=== PATIENT | female | born 1960 | race Caucasian/White ===

== ENCOUNTER 2016-06-26 09:53 | Outpatient (CLI) | payer OTHER ==
[2015-04-01 11:35] VITALS: BP 130/78
[2016-06-26 10:53] LABS: eGFR (African) > 60; eGFR (Non-African) > 60
== END 2016-06-26 09:54 ==
LOC: LAB 09:53
PROVIDERS: ATTEND Family Medicine
DX: E78.2 Mixed hyperlipidemia (principal); E03.9 Hypothyroidism, unspecified; R20.2 Paresthesia of skin
CPT/HCPCS: 36415; 80053; 80061; 82607; 82746; 84443

== ENCOUNTER 2017-07-03 18:36 | Emergency (ER) | payer OTHER ==
--- NOTE | 2017-07-03 19:29 | ED Physician Documentation ---
General Adult - HISTORIAN Historian: patient - HPI Stated Complaint: Problem with trach Chief Complaint: General Adult Timing: better Severity: mild Further Comments: yes (Pt is 56 yo female with a tracheostomy tube. Tube came out at home and was put back in. Pt is doing well and able to breath, but says she needs to be suctioned and to have the inner canula of the tracheostomy tube replaced. Pt uses oxygen 2L at home.) - ROS CONST: no problems EYES/ENT: none CVS/RESP: other (problem with tracheostomy tube) GI/: none MS/SKIN/LYMPH: none - PAST HX Past History: other (anxiety/depression; COPD; tracheostomy; GERD; HLD; HTN; Thyroid d/o.) Surgeries/Procedures: , other (ortho surgery) Allergies/Adverse Reactions: Allergies Allergy/AdvReac Type Severity Reaction Status Date / Time No Known Allergies Allergy Verified 07/03/17 19:30 Home Medications: Ambulatory Orders Medication Instructions Recorded Cyclobenzaprine HCl [Flexeril] 10 mg PO TID PRN 07/03/17 Pregabalin [Lyrica] 75 mg PO DAILY 07/03/17 oxyCODONE HCL [Oxycontin] 10 mg PO Q4 PRN 07/03/17 - SOCIAL HX Smoking History: quit greater than 1 year Drug Use: marijuana - FAMILY HX Family History: No - VITAL SIGNS Vital Signs: Vital Signs Temp Pulse Resp BP Pulse Ox 130/78 04/01/15 11:40 - REVIEWED ASSESSMENTS Nursing Assessment Reviewed: Yes Vitals Reviewed: Yes Progress - Progress Progress: Pt suctioned and inner cannula of tracheostomy replaced. Pt doing well. General Adult Physical Exam - PHYSICAL EXAM GENERAL APPEARANCE: mild distress NECK: normal inspection, supple, other (tracheostomy in place) RESPIRATORY: no resp distress, chest non-tender, breath sounds normal CVS: reg rate & rhythm, heart sounds normal BACK: normal inspection SKIN: warm/dry, normal color EXTREMITIES: non-tender NEURO: oriented X3, motor nml, sensation nml Discharge Clincal Impression: Tracheostomy complication, unspecified Qualifiers: Tracheostomy complication: unspecified Qualified Code(s): J95.00 - Unspecified tracheostomy complication Referrals: Carolina Magallanes MD [Primary Care Provider] - Condition: Good Disposition: 01 HOME, SELF-CARE Decision to Admit: NO Decision Time: 21:43
[2017-07-03 19:48] VITALS: BP 121/47
== END 2017-07-03 19:40 | disposition home or self-care (01) ==
LOC: ED 18:36
DX: J95.00 Unspecified tracheostomy complication (principal)
CPT/HCPCS: 99284

== ENCOUNTER 2017-07-29 10:40 | Emergency (ER) | payer OTHER ==
[2017-07-29] MEDS: IPRATROPIUM/ALBUTEROL SULFATE 3 ML AMPUL.NEB NEB ONE ×2 (10:44→10:59)
--- NOTE | 2017-07-29 10:44 | ED Physician Documentation ---
General Adult - HISTORIAN Historian: patient - HPI Stated Complaint: sob Chief Complaint: General Adult Onset: minutes Timing: still present Severity: moderate Further Comments: yes (Pt is a 57 yo female with a tracheostomy tube in place. Pt was suctioning her tube this am, when it became occluded. EMT's arrived and found pt is distress. They attached a bag valve mask to the tracheostomy and began to bag the pt with some improvement in her distress. After arrival in ER , pt was able to breath again through the tracheostomy. Pt is having difficulty obtaining trach supplies through her insurance. She has one suction tube that she has been re-using for weeks. She does not have any additional inner canula tubes.) - ROS CONST: no problems EYES/ENT: none CVS/RESP: shortness of breath GI/: none MS/SKIN/LYMPH: none - PAST HX Past History: COPD, other (mass in neck with tracheostomy tube) Surgeries/Procedures: Allergies/Adverse Reactions: Allergies Allergy/AdvReac Type Severity Reaction Status Date / Time No Known Allergies Allergy Verified 07/29/17 11:24 Home Medications: Ambulatory Orders Medication Instructions Recorded Cyclobenzaprine HCl [Flexeril] 10 mg PO TID PRN 07/03/17 Pregabalin [Lyrica] 75 mg PO DAILY 07/03/17 oxyCODONE HCL [Oxycontin] 10 mg PO Q4 PRN 07/03/17 - SOCIAL HX Smoking History: quit greater than 1 year - FAMILY HX Family History: No - VITAL SIGNS Vital Signs: Vital Signs Temp Pulse Resp BP Pulse Ox 121/47 07/03/17 19:40 - REVIEWED ASSESSMENTS Nursing Assessment Reviewed: Yes Vitals Reviewed: Yes Progress - Progress Progress: Duoneb HFN CXR: Tracheostomy tube ends of the clavicles. There is no infiltrate, effusion or pneumothorax. Heart size, mediastinum and pulmonary vascularity are normal. Impression: No active pulmonary disease. Pt will f/u at [facility] for replacement supplies. General Adult Physical Exam - PHYSICAL EXAM GENERAL APPEARANCE: moderate distress EENT: eye inspection normal, other (tracheostomy tube in place) RESPIRATORY: breath sounds normal (after tracheostomy obstruction cleared) CVS: reg rate & rhythm, heart sounds normal ABDOMEN: soft, no organomegaly, normal bowel sounds BACK: normal inspection, no CVA tenderness SKIN: warm/dry, normal color EXTREMITIES: non-tender, normal range of motion, no evidence of injury NEURO: oriented X3, motor nml, sensation nml Discharge Clincal Impression: Tracheostomy complication, unspecified Qualifiers: Tracheostomy complication: unspecified Qualified Code(s): J95.00 - Unspecified tracheostomy complication Referrals: Carolina Magallanes MD [Primary Care Provider] - Condition: Good Disposition: 01 HOME, SELF-CARE Decision to Admit: NO Decision Time: 12:02
--- NOTE | 2017-07-29 11:14 | Diagnostic Imaging Report ---
EUGENE BOOTH [facility] [id number] [facility] [address] [id number] Report Submission Date: Jul 29, 2017 11:12:39 AM CDT Patient Study Name: LILIANA LUCAS Date: Jul 29, 2017 10:56:10 AM CDT Modality Type: DX Gender: F Description: CHEST : 62 Institution: [facility] Physician: EUGENE BOOTH Chest, AP portable History: Shortness of breath Findings: Tracheostomy tube ends of the clavicles. There is no infiltrate, effusion or pneumothorax. Heart size, mediastinum and pulmonary vascularity are normal. Impression: No active pulmonary disease. Electronically signed on Jul 29, 2017 11:12:39 AM CDT by: Jesse GONZALEZ
[2017-07-29 12:15] VITALS: BP 107/57
== END 2017-07-29 12:05 | disposition home or self-care (01) ==
LOC: ED 10:40
DX: J95.00 Unspecified tracheostomy complication (principal)
CPT/HCPCS: 71045; 94640; 99284

== ENCOUNTER 2017-08-17 14:12 | Outpatient (CLI) | payer OTHER | END 2017-08-17 14:13 | LOC: POD 14:12 | PROVIDERS: ATTEND Podiatrist | DX: B35.1 Tinea unguium (principal); M79.674 Pain in right toe(s); M79.675 Pain in left toe(s) | CPT/HCPCS: 11721; 99213 ==